=== PATIENT | female | born 1955 | race Two or more races ===

== ENCOUNTER 2019-06-16 19:45 | Emergency (ER) | payer MEDICAID, OTHER ==
[~2019-06-16] VITALS: Ht 149.9 cm; Wt 70.3 kg
[2019-06-16] MEDS ORDERED: methylPREDNISolone SOD SUCC 125 MG/2 ML VL IM ONE (20:30)
[2019-06-16] MEDS ORDERED: IPRATROPIUM BROM 0.5 MG/2.5ML INH SOL NEB ONE (20:30)
[2019-06-16] MEDS ORDERED: ALBUTEROL SULF 2.5 MG/0.5ML(0.5%) NEB SOLN NEB ONE (20:30)
[2019-06-16] MEDS ORDERED: methylPREDNISolone SOD SUCC 125 MG/2 ML VL ONE (20:30)
[2019-06-16 21:10] VITALS: BP 150/79
== END 2019-06-16 21:32 | disposition home or self-care (01) ==
LOC: ER 19:46
DX: J20.9 Acute bronchitis, unspecified (principal)
CPT/HCPCS: 94640; 96372; 99283; J2930; J7611; J7644

== ENCOUNTER 2023-06-04 08:52 | Emergency (ER) | payer OTHER ==
[~2023-06-04] VITALS: Ht 149.9 cm; Wt 67.7 kg
[2023-06-04 10:46] VITALS: BP 123/65; PULSE 82; RESP 18; TEMP 98.7; O2SAT 95
[2023-06-04 11:55] LABS: Basophils # (auto) 0.1 10 ^3/uL (0-0.2); Basophils % (auto) 1.2 % (0.0-2.0); Eosinophils # (auto) 0.4 10 ^3/uL (0-0.8); Eosinophils % (auto) 4.4 % (0.0-7.0); Hematocrit 39.1 % (36.0-46.0); Hemoglobin 13.1 g/dL (12.2-16.2); Lymphocytes # (auto) 0.9 10 ^3/uL (0.4-5.4); Lymphocytes % (auto) 9.7 % (10.0-50.0); Mean Corpuscular Hemoglobin 30.7 pg (28.0-32.0); Mean Corpuscular Hgb Conc. 33.6 g/dL (32.0-36.0); Mean Corpuscular Volume 91.4 fL (80.0-100.0); Monocytes # (auto) 0.7 10 ^3/uL (0-1.3); Monocytes % (auto) 7.3 % (0.0-12.0); Neutrophils # (auto) 7.5 10 ^3/uL (1.6-8.6); Neutrophils % (auto) 77.4 % (37.0-80.0); Nucleated Red Blood Cells % 0.1 %; Red Blood Cells 4.27 10^6/uL (4.0-5.20); White Blood Cell 9.7 10^3/uL (4.4-10.8)
[2023-06-04 12:12] LABS: Alanine Aminotransferase 16 U/L (7-40); Alkaline Phosphatase 106 U/L (46-116); Anion Gap 4 (5-15); Aspartate Aminotransferase 10 U/L (13-40); BUN/Creatinine Ratio 13.6 (10.0-20.0); Blood Urea Nitrogen 9 mg/dL (9-23); Calcium 9.9 mg/dL (8.5-10.1); Carbon Dioxide 28 mmol/L (20-30); Chloride 107 mmol/L (98-107); Glucose 110 mg/dL (74-106); Potassium 4.4 mmol/L (3.5-5.1); Sodium 139 mmol/L (136-145)
[2023-06-04 12:13] LABS: Bilirubin, Total 0.3 mg/dL (0.2-1.0); Total Protein 7.1 g/dL (5.7-8.2)
[2023-06-04 12:21] LABS: Urine Bacteria FEW /hpf (None Seen); Urine Blood 1+ /uL (Negative); Urine Clarity HAZY (Clear); Urine Color Yellow (Yellow); Urine Protein, UAD 2+ (Negative); Urine WBC 24 /hpf (0 - 5)
[2023-06-04] MEDS ORDERED: cefTRIAXone SOD 500 MG VL IM ONE (12:30)
[2023-06-04] MEDS ORDERED: ACET500T58 PO (12:39)
[2023-06-04] MEDS ORDERED: CEFP100T6 PO (12:39)
[2023-06-04] MEDS ORDERED: METH4PAK PO (12:39)
[2023-06-04] MEDS ORDERED: AZIT-81 PO (12:39)
[2023-06-04] MEDS ORDERED: cefTRIAXone SOD 1,000 MG VL IM ONE (12:45)
[2023-06-04] MEDS ORDERED: ALBU108A5 IN (12:53)
== END 2023-06-04 12:49 | disposition home or self-care (01) ==
LOC: ER 08:52
DX: J18.9 Pneumonia, unspecified organism (principal); N39.0 Urinary tract infection, site not specified
CPT/HCPCS: 36415; 71045; 80053; 81001; 85025; 96372; 99284; J0696

== ENCOUNTER 2023-06-06 11:34 | Emergency (ER) | payer OTHER ==
[~2023-06-06] VITALS: Ht 10.4 cm; Wt 69.1 kg
[~2023-06-06 11:34] MED LIST: ACET500T58 PO; ALBU108A5 IN; AZIT-81 PO; CEFP100T6 PO; METH4PAK PO
[2023-06-06 13:27] VITALS: BP 90/50; PULSE 98; RESP 15; TEMP 98.9; O2SAT 97
[2023-06-06] MEDS ORDERED: LEVO500T91 PO (13:27)
[2023-06-06] MEDS ORDERED: ALBU108A5 IN (13:27)
== END 2023-06-06 14:10 | disposition home or self-care (01) ==
LOC: ER 11:34
DX: J18.9 Pneumonia, unspecified organism (principal); E78.5 Hyperlipidemia, unspecified